=== PATIENT | female | born 1975 | race Two or more races ===

== ENCOUNTER → 2021-04-22 | Emergency (ER) | payer MEDICAID ==
[~2021-04-22] VITALS: Ht 170.2 cm; Wt 90.8 kg
[~2021-04-22] MED LIST: IBUP-1957 PO; KETOROLAC TROMETHAMINE INJ 30 MG/ML VIAL IM ONE; KETOROLAC TROMETHAMINE INJ 30 MG/ML VIAL ONE
--- NOTE | 2021-04-22 14:09 | NUR ---
PT CAME IN C/O KNEE PAIN AND SWELLING FOR 1 WK, PT STATED, TODAY SWELLING AND PAIN GOT WORST.PT IS A/O X4,CONNECTED TO MONITOR.
[2021-04-22 16:28] VITALS: BP 128/69
--- NOTE | 2021-04-22 16:28 | NUR ---
Patient discharged to home in stable condition. Rx,Written and verbal after care instructions given. Patient verbalizes understanding of instruction.
== END | disposition home or self-care (01) ==
LOC: ER 14:00
DX: M25.462 Effusion, left knee (principal); M25.461 Effusion, right knee; M17.0 Bilateral primary osteoarthritis of knee; I11.9 Hypertensive heart disease without heart failure; E11.9 Type 2 diabetes mellitus without complications
CPT/HCPCS: 73564 ×2; 96372; 99283; J1885

== ENCOUNTER 2022-07-06 11:21 | Emergency (ER) | payer MEDICAID ==
[~2022-07-06] VITALS: Ht 170.2 cm; Wt 86.2 kg
[~2022-07-06 11:21] MED LIST changes: -KETOROLAC TROMETHAMINE INJ 30 MG/ML VIAL IM ONE; -KETOROLAC TROMETHAMINE INJ 30 MG/ML VIAL ONE
--- NOTE | 2022-07-06 11:44 | NUR ---
urine sample collected sent to lab
--- NOTE | 2022-07-06 11:45 | NUR ---
fever, sorethroat, generalized bodyaches and malaise since yesterday
--- NOTE | 2022-07-06 11:53 | NUR ---
iv inserted bld drawn and sent to lab
[2022-07-06 12:04] LABS: BILIRUBIN,URINE NEGATIVE (NEGATIVE); COLOR,URINE YELLOW (YELLOW); LEUKOCYTE ESTERASE ,URINE TRACE (NEGATIVE); NITRITE, URINE NEGATIVE (NEGATIVE); PROTEIN,URINE NEGATIVE (NEGATIVE); UGLUCOSE NEGATIVE (NEGATIVE); UROBILINOGEN,URINE 0.2 EU/dL (0.2)
[2022-07-06 12:27] LABS: BACTERIA,URINE Moderate /HPF (None Seen); RBC,URINE 0-2 /HPF (0-2); SQUAMOUS EPITHELIAL CELL,UR Moderate /HPF (None Seen); WBC,URINE 0-2 /HPF (0-3)
--- NOTE | 2022-07-06 12:28 | NUR ---
COVID SWAB COLLECTED AND SENT TO LAB
[2022-07-06] MEDS ORDERED: ONDA4TAB5 PO (12:46)
[2022-07-06] MEDS ORDERED: IBUP-1957 PO (12:46)
[2022-07-06] MEDS ORDERED: IBUPROFEN 600 MG TABLET ONE (12:59)
[2022-07-06] MEDS ORDERED: ONDANSETRON 4 MG TAB.RAPDIS PO ONE (13:00)
[2022-07-06] MEDS ORDERED: IBUPROFEN 600 MG TABLET PO ONE (13:00)
[2022-07-06] MEDS ORDERED: ONDANSETRON 4 MG TAB.RAPDIS ONE (13:00)
[2022-07-06 13:18] VITALS: BP 139/84
== END 2022-07-06 13:23 | disposition home or self-care (01) ==
LOC: ER 11:23
DX: B34.9 Viral infection, unspecified (principal); Z79.899 Other long term (current) drug therapy; Z20.822 Contact with and (suspected) exposure to COVID-19
CPT/HCPCS: 99284; 71045; 87426; 87086; 81001; Q0162; C9803